=== PATIENT | male | born 1955 | race Caucasian/White ===

== ENCOUNTER 2016-06-03 05:49 | Day surgery (SDC) | payer OTHER ==
[~2016-06-03 05:49] MED LIST: ATENOLOL100 MG PO; LISINOPRIL40 MG PO; SIMVASTATIN40 MG PO; SINGULAIR10 MG PO; ZYRTEC ALLERGY10 MG PO
[2016-06-03] MEDS ORDERED: NORCO1 TA1 PO (08:54)
--- NOTE | 2016-06-03 08:56 | Provider's Discharge Care Plan ---
Problem, Goal, Plan Problem List 1. S/P parathyroidectomy Instructions: Follow up as needed (elevate head of bed)
--- NOTE | 2016-06-03 08:56 | Provider's Discharge Care Plan ---
Problem, Goal, Plan Problem List 1. S/P parathyroidectomy Instructions: Follow up as needed (elevate head of bed)
--- NOTE | 2016-06-03 09:41 | OPERATIVE REPORT ---
DATE OF SURGERY: 06/03/2016 SURGEON: Triston Cortez MD [employer] ENG[employer]ER: Christie Lewis III, MD. PREOPERATIVE DIAGNOSIS: 1. Parathyroid adenoma POSTOPERATIVE DIAGNOSIS: 1. Parathyroid adenoma PROCEDURE PERFORMED: 1. Excision of right parathyroid adenoma ANESTHESIA: General. INDICATIONS: The patient is a 61-year-old man presenting with asymptomatic hyperparathyroidism. Ultrasound showed a single adenoma on the right side in the mid gland. CT showed several additional lymph nodes. A sestamibi scan preoperatively showed a single focus of uptake in the right mid thyroid region consistent with the ultrasound. SURGICAL TECHNIQUE: The patient was taken to the operating room, where a general anesthetic was administered and the patient prepped and draped in the usual sterile fashion. The head of bed was elevated. A transverse incision was made and carried down through skin and subcutaneous tissue with sharp and electrocautery dissection. The midline strap muscles were split and dissection carried on the anterior surface of the right lobe of the thyroid gland over it. The thyroid was rotated up and the middle thyroid vein was taken down between 3-0 Vicryl ligatures and clips. The rest of the thyroid space was explored, and at the mid gland, there was a 6-7 mm well- circumscribed lesion with coloration and location consistent with a parathyroid adenoma. This was excised using blunt dissection and bipolar cautery. The mass was submitted for frozen sectioning and contained parathyroid tissue. Localized palpation and exploration revealed no further suspicious lesions and no attempt was made to go exotic locations in the neck. The left side was left completely undisturbed. The hemostasis was found to be complete. The wound was closed using running 3-0 Vicryl for the midline and for the platysma. The skin was closed with running subcuticular 4-0 Vicryl suture and Steri-Strips. The patient left in stable condition. No intraoperative complications were encountered.
[2016-06-03 11:04] VITALS: BP 167/85
[2016-06-03 11:10] VITALS: BP 165/93
[2016-06-03 11:30] VITALS: BP 158/89
[2016-06-03 11:47] VITALS: BP 160/85
== END 2016-06-03 13:00 | disposition home or self-care (01) ==
LOC: OR SRH 05:49 → OB SRH 05:57 → CC SRH 10:34
PROVIDERS: Surgery
PROC: 0GBH0ZZ Excision of Right Thyroid Gland Lobe, Open Approach (ICD-10-PCS; principal; 2016-06-03 07:30)
DX: D35.1 Benign neoplasm of parathyroid gland (principal); E21.3 Hyperparathyroidism, unspecified; I10 Essential (primary) hypertension